=== PATIENT | female | born 1940 | race Caucasian/White ===

== ENCOUNTER → 2016-09-04 | Outpatient (CLI) | payer OTHER ==
[~2016-09-04] MED LIST: ASPCH81 PO; FURO-85 PO; LORA-741 PO; NOTE:; POTA10CA28 PO; SERT-234 PO; TRIA0.1C20 TD
--- NOTE | 2016-09-04 16:51 | DIAGNOSTIC IMAGING REPORT ---
RIGHT HIP UNILATERAL 2 VIEWS CLINICAL HISTORY: Right hip pain. COMPARISON: None FINDINGS: Alignment of the right hip is anatomic. There is no fracture or suspicious lesion. The joint space is preserved. There is mild osteophytosis. There is no evidence for avascular necrosis. IMPRESSION: 1. Mild osteoarthritis of the right hip. 2. No acute fracture. Electronically signed by: Kike Cifuentes M.D. 09/04/2016 4:49 PM Dictated Date/Time: 09/04/2016 4:49 PM
== END | disposition home or self-care (01) ==
LOC: C.RADBC 16:04
PROVIDERS: ATTEND Nurse Practitioner
DX: Z12.31 Encounter for screening mammogram for malignant neoplasm of breast (principal); M16.11 Unilateral primary osteoarthritis, right hip; M79.604 Pain in right leg; M79.1 Myalgia

== ENCOUNTER → 2016-09-04 | Outpatient (CLI) | payer OTHER ==
--- NOTE | 2016-09-05 08:27 | MAMMOGRAPHY REPORT ---
BILATERAL DIGITAL SCREENING MAMMOGRAM WITH CAD: 09/04/2016 CLINICAL HISTORY: Routine screening examination. TECHNIQUE: Bilateral CC, MLO and left XCCL views were obtained. Current study was also evaluated wi th a Computer Aided Detection (CAD) system. COMPARISON: Comparison is made to exams dated: 08/30/2015 mammogram, 08/24/2014 mammogram, 08/21/2013 mammogram, 08/20/2012 mammogram, 08/15/2011 mammogram, and 08/09/2010 mammogram - [facility]. BREAST COMPOSITION: There are scattered areas of fibroglandular density in both breasts. FINDINGS: There are mild vascular calcifications in the breasts. No suspicious mass, architectural distortion or cluster of microcalcifications is seen. IMPRESSION: ACR BI-RADS CATEGORY 1: NEGATIVE There is no mammographic evidence of malignancy. A 1 year screening mammogram is recommended. The p atient will receive written notification of the results. Approximately 10% of breast cancers are not detected with mammography. A negative mammographic repor t should not delay biopsy if a clinically suggestive mass is present. Ella King M.D. ay/:09/04/2016 16:20:35 Auto Body Customizer: Vianey WATTS(R)(M), [facility] letter sent: Normal 1/2 BI-RADS Code: ACR BI-RADS Category 1: Negative
== END | disposition home or self-care (01) ==
LOC: C.MAMM 09:48
PROVIDERS: ATTEND Family Medicine
DX: Z12.31 Encounter for screening mammogram for malignant neoplasm of breast (principal)

== ENCOUNTER → 2017-06-17 | Outpatient (CLI) | payer OTHER ==
--- NOTE | 2017-06-17 16:44 | DIAGNOSTIC IMAGING REPORT ---
L KNEE 1 OR 2 VIEWS ROUTINE CLINICAL HISTORY: LEFT KNEE PAIN trauma. Pain. COMPARISON: None. DISCUSSION: Moderate degenerative change all major joint compartments. No evidence for acute bony pathology. Prepatellar soft tissue edema. IMPRESSION: Moderate degenerative change. No acute bony abnormality. Prepatellar soft tissue edema. The above report was generated using voice recognition software. It may contain grammatical, syntax or spelling errors. Electronically signed by: Nikhil Greenberg M.D. 06/17/2017 4:43 PM Dictated Date/Time: 06/17/2017 4:42 PM
== END | disposition home or self-care (01) ==
LOC: C.RAD 16:12
PROVIDERS: ATTEND Family Medicine
DX: M25.562 Pain in left knee (principal); M17.12 Unilateral primary osteoarthritis, left knee; M79.9 Soft tissue disorder, unspecified

== ENCOUNTER → 2017-09-10 | Outpatient (CLI) | payer OTHER ==
--- NOTE | 2017-09-11 15:05 | MAMMOGRAPHY REPORT ---
BILATERAL DIGITAL SCREENING MAMMOGRAM TOMOSYNTHESIS WITH CAD: 09/10/2017 CLINICAL HISTORY: Routine screening. Patient has no complaints. TECHNIQUE: Breast tomosynthesis in addition to standard 2D mammography was performed. Current study was also evaluated with a Computer Aided Detection (CAD) system. COMPARISON: Comparison is made to exams dated: 09/04/2016 mammogram, 08/30/2015 mammogram, 08/24/2014 ma mmogram, 08/21/2013 mammogram, 08/20/2012 mammogram, and 08/15/2011 mammogram - [facility]. BREAST COMPOSITION: There are scattered areas of fibroglandular density in both breasts. FINDINGS: There are stable asymmetries in the lateral left breast. Mild vascular calcification bilat erally. No suspicious mass, architectural distortion or cluster of microcalcifications is seen. IMPRESSION: ACR BI-RADS CATEGORY 1: NEGATIVE There is no mammographic evidence of malignancy. A 1 year screening mammogram is recommended. The pa tient will receive written notification of the results. Approximately 10% of breast cancers are not detected with mammography. A negative mammographic report should not delay biopsy if a clinically suggestive mass is present. Ella King M.D. ay/:09/10/2017 16:48:11 Food Service Aide: Diamond HOOKS)(M), [facility] letter sent: Normal 1/2 BI-RADS Code: ACR BI-RADS Category 1: Negative
== END | disposition home or self-care (01) ==
LOC: C.MAMM 09:31
PROVIDERS: ATTEND Family Medicine
DX: Z12.31 Encounter for screening mammogram for malignant neoplasm of breast (principal)